=== PATIENT | female | born 1945 ===

== ENCOUNTER → 2022-07-11 14:00 | Outpatient (CLI) | payer MEDICARE, OTHER, SELFPAY ==
--- NOTE | ~2022-07-11 | US_ITS ---
US renal BI 07/11/2022 14:24 Procedure: Realtime transabdominal ultrasound of the kidneys and bladder. Indication: Recurrent UTI Comparison: No prior studies for comparison. Findings: Renal echotexture is normal bilaterally without hydronephrosis, contour deforming mass or r enal calculus. There is a left renal cyst measuring 5.6 cm. The right kidney measures 11.7 cm and lef t kidney measures 12 cm. Bladder within normal limits. Impression: 1: Left renal cyst measuring 5.6 cm. Reviewed, dictated and finalized at location A. DESK MANAGER Impression: 1: Left renal cyst measuring 5.6 cm.
== END ==
PROVIDERS: Visit Provider Urology
DX: N39.0 Urinary tract infection, site not specified (principal); N28.1 Cyst of kidney, acquired
CPT/HCPCS: 76775